=== PATIENT | female | born 2000 ===

== ENCOUNTER 2023-07-12 00:25 | Emergency (ER) | payer MEDICAID ==
[~2023-07-12] VITALS: Ht 154.9 cm; Wt 146.0 kg
[2023-07-12 00:25] VITALS: BP 158/87; PULSE 117; RESP 18; O2SAT 96
[2023-07-12] MEDS ORDERED: ACE3T PO (01:38)
== END 2023-07-12 02:09 | disposition home or self-care (01) ==
LOC: ER 00:25
DX: S82.832A Other fracture of upper and lower end of left fibula, initial encounter for closed fracture (principal); S92.355A Nondisplaced fracture of fifth metatarsal bone, left foot, initial encounter for closed fracture; W18.09XA Striking against other object with subsequent fall, initial encounter; Y93.02 Activity, running; Y92.89 Other specified places as the place of occurrence of the external cause; Y99.8 Other external cause status
CPT/HCPCS: 29515; 73610